=== PATIENT | female | born 1995 | race Caucasian/White ===

== ENCOUNTER 2017-01-25 23:41 | Inpatient (IN) | payer MEDICAID, OTHER ==
[~2017-01-25] VITALS: Ht 152.4 cm; Wt 79.6 kg
[~2017-01-25 23:41] MED LIST: SERT50TA12 PO
[2017-01-26 00:27] LABS: BASOPHILS # (AUTO) 0.03 K/uL (0.00-0.20); BASOPHILS % (AUTO) 0.4 % (0.0-2.0); EOSINOPHILS # (AUTO) 0.08 K/uL (0.00-0.70); EOSINOPHILS % (AUTO) 0.84 % (1.0-6.0); HEMATOCRIT 39.3 % (36-46); HEMOGLOBIN 13.1 g/dL (12.0-16.0); LYMPHOCYTES # (AUTO) 2.5 K/uL (1.0-4.8); LYMPHOCYTES % (AUTO) 27.1 % (22.0-44.0); MEAN CORPUSCULAR HEMOGLOBIN 28.1 pg (26.0-34.0); MEAN CORPUSCULAR HGB CONC 33.3 G/dL (31.0-37.0); MEAN CORPUSCULAR VOLUME 84 fL (80-100); MONOCYTES # (AUTO) 0.5 K/uL (0.1-1.0); MONOCYTES % (AUTO) 5.5 % (2.0-9.0); NEUTROPHILS % (AUTO) 66.2 % (40.0-70.0); PLATELET COUNT (AUTO) 253 K/uL (150-450); RED BLOOD CELL COUNT(AUTO) 4.66 MIL/uL (4.00-5.20); WHITE BLOOD COUNT (AUTO) 9.1 K/uL (4.5-11.0)
[2017-01-26 00:38] LABS: ANION GAP 6 mmol/L (8-16); CALCIUM, TOTAL 9.2 mg/dL (8.8-10.5); CARBON DIOXIDE 29 mmol/L (22-29); CHLORIDE 104 mmol/L (98-107); GLOMERULAR FILTR. RATE CALC > 60 mL/min (>60); POTASSIUM 3.6 mmol/L (3.5-5.1); SODIUM SERUM 139 mmol/L (136-145); UREA NITROGEN, BLOOD 7 mg/dL (7-18)
[2017-01-26 00:44] LABS: ALANINE AMINOTRANSFERASE 36 U/L (12-78); ALBUMIN 3.8 g/dL (3.4-5.0); ASPARTATE AMINOTRANSFERASE 20 U/L (15-37); BILIRUBIN,TOTAL 0.3 mg/dL (0.1-1.0); TOTAL PROTEIN, SERUM 7.5 g/dL (6.4-8.2)
[2017-01-26] MEDS ORDERED: ACETAMINOPHEN 500 MG TABLET PO ONE (02:15)
[2017-01-26 05:58] VITALS: BP 102/72
[2017-01-26] MEDS ORDERED: INFLUENZA VIRUS VACCINE QVS 2017-18 (3YR+)/PF 60 MCG/0.5 ML SYRINGE IM ONE (06:00)
[2017-01-26 08:47] VITALS: BP 111/70
[2017-01-26] MEDS ORDERED: ALBUTEROL SULFATE HFA 90 MCG/PUFF 8 GM INHALER IH PRN (09:15)
[2017-01-26] MEDS ORDERED: LOPERAMIDE HCL 2 MG CAPSULE PO PRN (09:15)
[2017-01-26] MEDS ORDERED: ONDANSETRON HCL 4 MG TABLET PO PRN (09:15)
[2017-01-26] MEDS ORDERED: BENZOCAINE/MENTHOL LOZENGE MM PRN (09:15)
[2017-01-26] MEDS ORDERED: CloNIDine HCL 0.1 MG TABLET PO PRN (09:15)
[2017-01-26] MEDS ORDERED: MAGNESIUM HYDROXIDE SUSPENSION 30 ML UDCUP PO PRN (09:15)
[2017-01-26] MEDS ORDERED: IBUPROFEN 600 MG TABLET PO PRN (09:15)
[2017-01-26] MEDS ORDERED: MAG HYDROX/AL HYDROX/SIMETH ES 30 ML SUSPENSION UDCUP PO PRN (09:15)
[2017-01-26] MEDS ORDERED: ACETAMINOPHEN 325 MG TABLET PO PRN (09:15)
[2017-01-26] MEDS ORDERED: BACITRACIN 28.4 GM OINTMENT TP PRN (09:15)
[2017-01-26] MEDS ORDERED: PETROLATUM,WHITE 71 GM JELLY TP PRN (09:15)
[2017-01-26] MEDS: SERTRALINE HCL 50 MG TABLET PO SCH (13:24)
[2017-01-26 16:14] VITALS: BP 118/67
[2017-01-26] MEDS: LORazepam 2 MG TABLET PO PRN (16:15)
[2017-01-26] MEDS: ZOLPIDEM TARTRATE 10 MG TABLET PO PRN (21:11)
[2017-01-27 06:32] VITALS: BP 106/58
[2017-01-27 08:07] LABS: APPEARANCE,URINE TURBID (CLEAR); GLUCOSE, URINE (UA) NEGATIVE (NEGATIVE); KETONES,URINE NEGATIVE (NEGATIVE); LEUKOCYTE ESTERASE ,URINE NEGATIVE (NEGATIVE); OCCULT BLOOD,URINE NEGATIVE (NEGATIVE); PROTEIN,URINE NEGATIVE (NEGATIVE)
[2017-01-27 08:09] LABS: ADD UA MICROSCOPIC YES
[2017-01-27 08:21] LABS: AMORPHOUS SEDIMENT,UR Many /LPF (None Seen); CALCIUM OXALATE CRYSTALS,UR Few /LPF (None Seen); RBC,URINE None Seen /HPF (0-2); SQUAMOUS EPITHELIAL CELL,UR Few /LPF (None Seen); WBC,URINE None Seen /HPF (0-5)
[2017-01-27 08:34] LABS: CHOL/HDL RATIO 5.4 (3.9-5.7)
[2017-01-27] MEDS: SERTRALINE HCL 50 MG TABLET PO SCH (08:34)
[2017-01-27] MEDS: LORazepam 2 MG TABLET PO PRN ×2 (08:34→17:50)
[2017-01-27 08:49] VITALS: BP 122/68
[2017-01-27 17:30] VITALS: BP 118/71
[2017-01-27] MEDS: ZOLPIDEM TARTRATE 10 MG TABLET PO PRN (20:03)
[2017-01-27] MEDS: HALOPERIDOL 5 MG TABLET PO PRN (21:18)
[2017-01-28 07:12] VITALS: BP 106/70
[2017-01-28 08:44] VITALS: BP 107/60
[2017-01-28] MEDS: LORazepam 2 MG TABLET PO PRN ×3 (08:53→20:31)
[2017-01-28] MEDS: SERTRALINE HCL 50 MG TABLET PO SCH (08:53)
[2017-01-28] MEDS ORDERED: SERTRALINE HCL 50 MG TABLET PO ONE (09:00)
[2017-01-28 16:19] VITALS: BP 117/61
[2017-01-28] MEDS: ZOLPIDEM TARTRATE 10 MG TABLET PO PRN (21:06)
[2017-01-28] MEDS: HALOPERIDOL 5 MG TABLET PO PRN (21:55)
[2017-01-29 06:59] VITALS: BP 114/60
[2017-01-29 08:31] VITALS: BP 100/61
[2017-01-29] MEDS: SERTRALINE HCL 50 MG TABLET PO SCH (09:22)
[2017-01-29 10:55] VITALS: BP 111/73
[2017-01-29] MEDS: LORazepam 2 MG TABLET PO PRN ×2 (10:59→16:50)
[2017-01-29 16:11] VITALS: BP 122/74
[2017-01-29] MEDS: HALOPERIDOL 5 MG TABLET PO PRN (16:51)
[2017-01-30 00:30] VITALS: BP_SYST 101; BP_SYST 110; BP_DIAS 70
[2017-01-30] MEDS: ZOLPIDEM TARTRATE 10 MG TABLET PO PRN ×2 (00:43→20:47)
[2017-01-30 08:31] VITALS: BP 105/60
[2017-01-30] MEDS: SERTRALINE HCL 50 MG TABLET PO SCH (08:49)
[2017-01-30 10:56] VITALS: BP 125/64
[2017-01-30] MEDS: LORazepam 2 MG TABLET PO PRN ×2 (10:56→16:58)
[2017-01-30] MEDS: HALOPERIDOL 5 MG TABLET PO PRN (13:50)
[2017-01-30 16:15] VITALS: BP 119/80
[2017-01-31 00:01] VITALS: BP 109/72
[2017-01-31 08:09] VITALS: BP 111/70
[2017-01-31] MEDS: SERTRALINE HCL 50 MG TABLET PO SCH (08:39)
[2017-01-31] MEDS: LORazepam 2 MG TABLET PO PRN (09:37)
== END 2017-01-31 13:43 | disposition home or self-care (01) | DRG 751 ==
LOC: EMS 23:42 → B2S 01-26 02:30
PROC: 3E0234Z Introduction of Serum, Toxoid and Vaccine into Muscle, Percutaneous Approach (ICD-10-PCS; principal; 2017-01-26)
DX: F33.2 Major depressive disorder, recurrent severe without psychotic features (principal); R45.851 Suicidal ideations; Z91.14 Patient's other noncompliance with medication regimen; Z23 Encounter for immunization; Z59.0 Homelessness; E66.9 Obesity, unspecified; F12.90 Cannabis use, unspecified, uncomplicated; G47.00 Insomnia, unspecified; K59.00 Constipation, unspecified; Z79.899 Other long term (current) drug therapy; Z91.5 Personal history of self-harm; R30.0 Dysuria; Z56.0 Unemployment, unspecified; Z71.51 Drug abuse counseling and surveillance of drug abuser
CPT/HCPCS: 90471; 99285; G0480

== ENCOUNTER 2017-05-09 01:48 | Inpatient (IN) | payer MEDICAID, OTHER ==
[~2017-05-09] VITALS: Ht 154.9 cm; Wt 81.7 kg
[2017-05-09] MEDS ORDERED: SODIUM CHLORIDE 0.9% 250 ML IRRIG SOLUTION BOTTLE IRRIG ONE (02:15)
[2017-05-09] MEDS ORDERED: PERTUSS(ACELL),DIPH,TET VAC/PF 0.5 ML VIAL IM ONE (02:15)
[2017-05-09] MEDS ORDERED: ONDANSETRON HCL 4 MG/2 ML VIAL IVP ONE (02:15)
[2017-05-09] MEDS ORDERED: SODIUM CHLORIDE 0.9% 1,000 ML IV ONE ×2 (02:15→06:00)
[2017-05-09 02:36] LABS: BASOPHILS % (AUTO) 0.5 % (0.0-2.0); EOSINOPHILS % (AUTO) 0.7 % (1.0-6.0); HEMATOCRIT 42.7 % (36-46); HEMOGLOBIN 14.2 g/dL (12.0-16.0); LYMPHOCYTES # (AUTO) 3.6 K/uL (1.0-4.8); LYMPHOCYTES % (AUTO) 31.3 % (22.0-44.0); MEAN CORPUSCULAR HEMOGLOBIN 27.1 pg (26.0-34.0); MEAN CORPUSCULAR HGB CONC 33.1 G/dL (31.0-37.0); MEAN CORPUSCULAR VOLUME 82 fL (80-100); MONOCYTES # (AUTO) 0.6 K/uL (0.1-1.0); MONOCYTES % (AUTO) 5.3 % (2.0-9.0); NEUTROPHILS # (AUTO) 7.2 K/uL (1.8-7.7); NEUTROPHILS % (AUTO) 62.2 % (40.0-70.0); PLATELET COUNT (AUTO) 300 K/uL (150-450); RED BLOOD CELL COUNT(AUTO) 5.22 MIL/uL (4.00-5.20)
[2017-05-09 02:41] LABS: AMPHET/METH SCREEN,URINE NEGATIVE (NEGATIVE); BARBITURATE SCREEN, URINE NEGATIVE (NEGATIVE); BENZODIAZEPINES SCREEN,URINE NEGATIVE (NEGATIVE); CANNABINOID SCREEN,URINE NEGATIVE (NEGATIVE); COCAINE SCREEN,URINE NEGATIVE (NEGATIVE); METHADONE SCREEN, URINE NEGATIVE (NEGATIVE); OPIATE SCREEN,URINE NEGATIVE (NEGATIVE)
[2017-05-09 02:45] LABS: PHENCYCLIDINE SCREEN,URINE NEGATIVE (NEGATIVE)
[2017-05-09] MEDS ORDERED: LORazepam 2 MG/ML VIAL IVP ONE ×2 (02:45→03:30)
[2017-05-09 02:46] LABS: ANION GAP 10 mmol/L (8-16); CALCIUM, TOTAL 9.2 mg/dL (8.8-10.5); CARBON DIOXIDE 27 mmol/L (22-29); CHLORIDE 104 mmol/L (98-107); GLOMERULAR FILTR. RATE CALC > 60 mL/min (>60); GLUCOSE,RANDOM 121 mg/dL (70-110); POTASSIUM 3.4 mmol/L (3.5-5.1); SODIUM SERUM 141 mmol/L (136-145); UREA NITROGEN, BLOOD 9 mg/dL (7-18)
[2017-05-09 02:53] LABS: ALANINE AMINOTRANSFERASE 37 U/L (12-78); ALKALINE PHOSPHATASE 84 U/L (46-116); ASPARTATE AMINOTRANSFERASE 22 U/L (15-37); BILIRUBIN,TOTAL 0.3 mg/dL (0.1-1.0)
[2017-05-09 02:54] LABS: ACETAMINOPHEN < 2 mcg/mL (10-30); SALICYLATE < 2.8 mg/dL (2.8-20.0)
[2017-05-09 05:42] LABS: BASOPHILS % (AUTO) 0.2 % (0.0-2.0); EOSINOPHILS % (AUTO) 0.1 % (1.0-6.0); HEMATOCRIT 37.7 % (36-46); HEMOGLOBIN 12.7 g/dL (12.0-16.0); LYMPHOCYTES # (AUTO) 1.7 K/uL (1.0-4.8); LYMPHOCYTES % (AUTO) 12.7 % (22.0-44.0); MEAN CORPUSCULAR HEMOGLOBIN 27.4 pg (26.0-34.0); MEAN CORPUSCULAR HGB CONC 33.8 G/dL (31.0-37.0); MEAN CORPUSCULAR VOLUME 81 fL (80-100); MONOCYTES # (AUTO) 0.3 K/uL (0.1-1.0); MONOCYTES % (AUTO) 2.5 % (2.0-9.0); NEUTROPHILS # (AUTO) 11.6 K/uL (1.8-7.7); NEUTROPHILS % (AUTO) 84.5 % (40.0-70.0); PLATELET COUNT (AUTO) 277 K/uL (150-450); RED BLOOD CELL COUNT(AUTO) 4.65 MIL/uL (4.00-5.20); RED CELL DISTRIBUTION WIDTH 13.8 % (11.5-14.5)
[2017-05-09 05:55] LABS: ACETAMINOPHEN < 2 mcg/mL (10-30)
[2017-05-09 05:57] LABS: SALICYLATE < 2.8 mg/dL (2.8-20.0)
[2017-05-09 05:59] LABS: ANION GAP 8 mmol/L (8-16); CALCIUM, TOTAL 8.6 mg/dL (8.8-10.5); CARBON DIOXIDE 24 mmol/L (22-29); CHLORIDE 107 mmol/L (98-107); CREATININE 0.55 mg/dL (0.60-1.30); GLOMERULAR FILTR. RATE CALC > 60 mL/min (>60); GLUCOSE,RANDOM 122 mg/dL (70-110); POTASSIUM 3.9 mmol/L (3.5-5.1); SODIUM SERUM 139 mmol/L (136-145); UREA NITROGEN, BLOOD 7 mg/dL (7-18)
[2017-05-09 06:04] LABS: APPEARANCE,URINE CLEAR (CLEAR); BILIRUBIN,URINE NEGATIVE (NEGATIVE); GLUCOSE, URINE (UA) NEGATIVE (NEGATIVE); KETONES,URINE NEGATIVE (NEGATIVE); LEUKOCYTE ESTERASE ,URINE NEGATIVE (NEGATIVE); NITRATE,URINE NEGATIVE (NEGATIVE); OCCULT BLOOD,URINE NEGATIVE (NEGATIVE); PROTEIN,URINE NEGATIVE (NEGATIVE); UROBILINOGEN,URINE 0.2 mg/dL (<=1.0)
[2017-05-09 06:05] LABS: ALANINE AMINOTRANSFERASE 33 U/L (12-78); ALBUMIN 3.5 g/dL (3.4-5.0); ALKALINE PHOSPHATASE 72 U/L (46-116); ASPARTATE AMINOTRANSFERASE 22 U/L (15-37); BILIRUBIN,TOTAL 0.3 mg/dL (0.1-1.0)
[2017-05-09 13:12] LABS: GLUCOSE,POINT OF CARE 104 MG/DL (70-110)
[2017-05-09 13:49] VITALS: BP 130/77
[2017-05-09 13:54] VITALS: BP 130/77
[2017-05-09] MEDS: HALOPERIDOL 5 MG TABLET PO PRN (14:32)
[2017-05-09] MEDS: LORazepam 2 MG TABLET PO PRN ×2 (14:33→21:00)
[2017-05-09] MEDS ORDERED: -PHARMACY VACCINE NOTE- MISC ONE (14:45)
[2017-05-09 16:06] VITALS: BP 127/64
[2017-05-09 17:58] VITALS: BP 122/79
[2017-05-09] MEDS: ZOLPIDEM TARTRATE 10 MG TABLET PO PRN (21:00)
[2017-05-10 02:23] VITALS: BP 130/74
[2017-05-10 08:05] VITALS: BP 135/75
[2017-05-10] MEDS: ESCITALOPRAM OXALATE 10 MG TABLET PO SCH (12:59)
[2017-05-10] MEDS: LORazepam 2 MG TABLET PO PRN ×2 (16:02→23:01)
[2017-05-10] MEDS ORDERED: IBUPROFEN 400 MG TABLET PO PRN (16:15)
[2017-05-10] MEDS ORDERED: ACETAMINOPHEN 325 MG TABLET PO PRN (16:15)
[2017-05-10 16:24] VITALS: BP 111/67
[2017-05-10] MEDS: ZOLPIDEM TARTRATE 10 MG TABLET PO PRN (20:45)
[2017-05-11 06:04] VITALS: BP 119/72
[2017-05-11] MEDS: ESCITALOPRAM OXALATE 10 MG TABLET PO SCH (08:15)
[2017-05-11 08:42] VITALS: BP 106/58
[2017-05-11] MEDS: LORazepam 2 MG TABLET PO PRN ×2 (08:59→16:22)
[2017-05-11] MEDS: HALOPERIDOL 5 MG TABLET PO PRN ×2 (09:37→16:22)
[2017-05-11 16:09] VITALS: BP 111/61
[2017-05-11] MEDS: BusPIRone HCL 5 MG TABLET PO SCH (16:22)
[2017-05-12 07:00] VITALS: BP 100/61
[2017-05-12 08:09] LABS: HEMATOCRIT 39.6 % (36-46); MEAN CORPUSCULAR HGB CONC 32.9 G/dL (31.0-37.0); MEAN CORPUSCULAR VOLUME 82 fL (80-100); PLATELET COUNT (AUTO) 259 K/uL (150-450); RED BLOOD CELL COUNT(AUTO) 4.83 MIL/uL (4.00-5.20); RED CELL DISTRIBUTION WIDTH 14.1 % (11.5-14.5)
[2017-05-12 08:35] VITALS: BP 106/61
[2017-05-12 09:18] LABS: BASOPHILS % (MANUAL) 1 % (0-2); EOSINOPHILS % (MANUAL) 3 % (1-6); LYMPHOCYTES % (MANUAL) 36 % (22-44); MONOCYTES % (MANUAL) 3 % (2-9); SEGMENTED NEUTROPHILS % 57 % (40-70)
[2017-05-12] MEDS: BusPIRone HCL 5 MG TABLET PO SCH ×2 (09:21→17:04)
[2017-05-12] MEDS: ESCITALOPRAM OXALATE 10 MG TABLET PO SCH (09:22)
[2017-05-12 16:08] VITALS: BP 125/68
[2017-05-12] MEDS: HALOPERIDOL 5 MG TABLET PO PRN (17:04)
[2017-05-12] MEDS: LORazepam 2 MG TABLET PO PRN (17:04)
[2017-05-12] MEDS: ZOLPIDEM TARTRATE 10 MG TABLET PO PRN (22:31)
[2017-05-13 06:39] VITALS: BP 120/70
[2017-05-13 08:22] VITALS: BP 109/61
[2017-05-13] MEDS: BusPIRone HCL 5 MG TABLET PO SCH (08:31)
[2017-05-13] MEDS: ESCITALOPRAM OXALATE 10 MG TABLET PO SCH (08:31)
[2017-05-13] MEDS ORDERED: BUSP5TAB20 PO (10:51)
[2017-05-13] MEDS ORDERED: ESCI5TAB PO (10:53)
== END 2017-05-13 13:38 | disposition home or self-care (01) | DRG 751 ==
LOC: EMS 01:49 → B3A 10:09 → EMS 10:49
PROC: 3E0234Z Introduction of Serum, Toxoid and Vaccine into Muscle, Percutaneous Approach (ICD-10-PCS; principal; 2017-05-09)
DX: F33.2 Major depressive disorder, recurrent severe without psychotic features (principal); E87.6 Hypokalemia; D72.829 Elevated white blood cell count, unspecified; F41.9 Anxiety disorder, unspecified; R00.0 Tachycardia, unspecified; R73.9 Hyperglycemia, unspecified; Z23 Encounter for immunization; Z79.899 Other long term (current) drug therapy; Z91.5 Personal history of self-harm
CPT/HCPCS: 82962; 83036; 83735; 85007; 90471; 90715; 93005; 96361; 96374; 96375; 96376; 99285; G0480; G0481; J2060; J2405; J7030

== ENCOUNTER 2021-10-23 00:03 | Emergency (ER) | payer MEDICAID ==
[~2021-10-23] VITALS: Ht 162.6 cm; Wt 84.5 kg
[~2021-10-23 00:03] MED LIST changes: +BUSP5TAB20 PO; +ESCI5TAB PO; -SERT50TA12 PO
[2021-10-23 00:15] VITALS: BP 131/64
[2021-10-23] MEDS ORDERED: METR70GE5 VG (00:19)
[2021-10-23 01:29] LABS: APPEARANCE,URINE CLEAR (CLEAR); BILIRUBIN,URINE NEGATIVE (NEGATIVE); GLUCOSE, URINE (UA) NEGATIVE (NEGATIVE); KETONES,URINE NEGATIVE (NEGATIVE); LEUKOCYTE ESTERASE ,URINE NEGATIVE (NEGATIVE); NITRATE,URINE NEGATIVE (NEGATIVE); OCCULT BLOOD,URINE NEGATIVE (NEGATIVE); PROTEIN,URINE NEGATIVE (NEGATIVE); SPECIFIC GRAVITIY, URINE 1.021 (1.003-1.030); UROBILINOGEN,URINE <=1.0 mg/dL (<=1.0)
[2021-10-23 01:32] LABS: BASOPHILS % (AUTO) 0.6 % (0.0-2.0); HEMATOCRIT 38.9 % (36-46); HEMOGLOBIN 13.1 g/dL (12.0-16.0); LYMPHOCYTES % (AUTO) 33.8 % (22.0-44.0); MEAN CORPUSCULAR HEMOGLOBIN 27.5 pg (26.0-34.0); MEAN CORPUSCULAR HGB CONC 33.7 G/dL (31.0-37.0); MEAN CORPUSCULAR VOLUME 82 fL (80-100); MONOCYTES # (AUTO) 0.5 K/uL (0.1-1.0); MONOCYTES % (AUTO) 5.7 % (2.0-9.0); NEUTROPHILS # (AUTO) 5.1 K/uL (1.8-7.7); NEUTROPHILS % (AUTO) 56.9 % (40.0-70.0); PLATELET COUNT (AUTO) 262 K/uL (150-450); RED BLOOD CELL COUNT(AUTO) 4.77 MIL/uL (4.00-5.20); RED CELL DISTRIBUTION WIDTH 14.2 % (11.5-14.5)
[2021-10-23 01:37] LABS: BACTERIA,URINE None Seen /HPF (None Seen); RBC,URINE None Seen /HPF (0-2); WBC,URINE None Seen /HPF (0-5)
[2021-10-23 01:42] LABS: ANION GAP 4 mmol/L (8-16); CALCIUM, TOTAL 8.6 mg/dL (8.8-10.5); CARBON DIOXIDE 30 mmol/L (22-29); CHLORIDE 104 mmol/L (98-107); CREATININE 0.55 mg/dL (0.60-1.30); GLUCOSE,RANDOM 87 mg/dL (70-110); POTASSIUM 3.7 mmol/L (3.5-5.1); SODIUM SERUM 138 mmol/L (136-145); UREA NITROGEN, BLOOD 6 mg/dL (7-18)
[2021-10-23 01:47] LABS: ALANINE AMINOTRANSFERASE 30 U/L (12-78); ALBUMIN 3.4 g/dL (3.4-5.0); ALKALINE PHOSPHATASE 77 U/L (46-116); ASPARTATE AMINOTRANSFERASE 16 U/L (15-37); BILIRUBIN,TOTAL 0.3 mg/dL (0.1-1.0); GLOMERULAR FILTR. RATE CALC > 60 mL/min (>60); TOTAL PROTEIN, SERUM 7.1 g/dL (6.4-8.2)
[2021-10-23 02:06] LABS: COVID AG,FIA SOURCE NASOPHARYNGEAL
== END 2021-10-23 03:37 | disposition home or self-care (01) ==
LOC: EMS 00:03
DX: R19.7 Diarrhea, unspecified (principal); F32.A Depression, unspecified; Z90.49 Acquired absence of other specified parts of digestive tract; Z20.822 Contact with and (suspected) exposure to COVID-19
CPT/HCPCS: 80053; 81001; 84703; 85025; 87491; 87591; 99281; 99283